=== PATIENT | male | born 1990 | race Caucasian/White ===

== ENCOUNTER 2019-02-24 13:51 | Emergency (ER) | payer BC, OTHER ==
[~2019-02-24] VITALS: Ht 170.2 cm; Wt 90.9 kg
[2019-02-24 14:00] VITALS: BP 138/71
--- NOTE | 2019-02-24 14:14 | NUR ---
PT BIB FAMILY TO THE ED WITH THE CHIEF C/O FLU SYMPTOMS SINCE THURSDAY. REPORTS GREENISH PHLEGM WITH BLOOD DURING COUGH. PT HAD FEVER ON THURSDAY. TAKING TEDAFLU FOR COUGH AND FEVER. REPORTS OF HAVING DIARRHEA X3 TODAY. NO BLOOD IN DIARRHEA. NAUSEATED. STATES GENERALIZED BODY ACHE 8/10 AT THIS TIME. LUNGS CLEAR. ABDOMEN SOFT, ROUND AND NON-TENDER. ACTIVE BOWEL SOUND.
[2019-02-24] MEDS ORDERED: ALBUTEROL 0.083% 2.5 MG/3 ML NEBU INH ONE (15:00)
--- NOTE | 2019-02-24 15:03 | NUR ---
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
[2019-02-24 15:08] LABS: APPEARANCE,URINE CLEAR (CLEAR); BILIRUBIN,URINE NEGATIVE (NEGATIVE); BLOOD, URINE NEGATIVE (NEGATIVE); COLOR,URINE YELLOW (YELLOW); LEUKOCYTE ESTERASE ,URINE NEGATIVE (NEGATIVE); NITRITE, URINE NEGATIVE (NEGATIVE); UGLUCOSE NEGATIVE (NEGATIVE)
--- NOTE | 2019-02-24 15:09 | NUR ---
PT RETURNED FROM RAD VIA WHEELCHAIR
--- NOTE | 2019-02-24 15:20 | NUR ---
DR. PARRA BEDSIDE EVALUATING PT
--- NOTE | 2019-02-24 16:10 | NUR ---
PT TAKEN TO CT VIA WHEELCHAIR
--- NOTE | 2019-02-24 16:11 | NUR ---
PT TAKEN TO CT.
--- NOTE | 2019-02-24 16:17 | NUR ---
PT RETURNED FROM CT VIA WHEELCHAIR
[2019-02-24 16:19] LABS: BASOPHILS % (AUTO) 0.3 % (0.0-2.0); EOSINOPHILS # (AUTO) 0.5 K/uL (0-0.4); EOSINOPHILS % (AUTO) 4.4 % (0.0-4.0); HEMOGLOBIN 15.8 g/dL (12.0-18.0); LYMPHOCYTES # (AUTO) 2.5 K/uL (2.0-11.5); LYMPHOCYTES % (AUTO) 23.2 % (20.5-51.1); MEAN CORPUSCULAR HEMOGLOBIN 30 pg (27-31); MEAN CORPUSCULAR HGB CONC 35 g/dL (33-37); MEAN CORPUSCULAR VOLUME 84.1 fL (80-94); MONOCYTES # (AUTO) 1.3 K/uL (0.8-1.0); MONOCYTES % (AUTO) 11.9 % (1.7-9.3); NEUTROPHILS # (AUTO) 6.5 K/uL (1.8-7.7); NEUTROPHILS % (AUTO) 60.2 % (42.2-75.2); PLATELET COUNT (AUTO) 247 K/uL (140-450); RED BLOOD CELL COUNT(AUTO) 5.35 MIL/uL (4.20-6.10); RED CELL DISTRIBUTION WIDTH 13.3 % (11.6-13.7); WHITE BLOOD COUNT (AUTO) 10.8 K/uL (4.8-10.8)
[2019-02-24 16:34] LABS: ALBUMIN 3.8 g/dL (3.4-5.0); ANION GAP 12.2 (8-16); CARBON DIOXIDE 28.8 mmol/L (21-32); TOTAL BILIRUBIN 0.8 mg/dL (0.0-1.0)
[2019-02-24] MEDS ORDERED: KETOROLAC 60 MG/2 ML VIAL IM ONE (16:40)
--- NOTE | 2019-02-24 18:07 | NUR ---
Patient discharged with v/s stable. Written and verbal after care instructions given and explained. Patient alert, oriented and verbalized understanding of instructions. Ambulatory with steady gait. All questions addressed prior to discharge. ID band removed. Patient advised to follow up with PMD. Rx of VENTOLIN HFA 90 MCG/ACTUATION, ZOFRAN ODT 4 MG,MOTRIN 600MG, MEDROL 4 MG,PROMETHAZINE DM 6.25/15/15MG/5 ML given. Patient educated on indication of medication including possible reaction and side effects. Opportunity to ask questions provided and answered.
[2019-02-24 18:09] VITALS: BP 124/77
== END 2019-02-24 18:07 | disposition home or self-care (01) ==
LOC: MED 13:51
DX: J20.9 Acute bronchitis, unspecified (principal); H66.92 Otitis media, unspecified, left ear; K80.20 Calculus of gallbladder without cholecystitis without obstruction
CPT/HCPCS: 36415; 74022; 74176; 80053; 81003; 83690; 85025; 87081; 94640; 96372; 99284; J1885; J7613